=== PATIENT | male | born 1980 | race Two or more races ===

== ENCOUNTER 2024-05-25 05:47 | Emergency (ER) | payer MEDICAID, OTHER ==
[~2024-05-25] VITALS: Ht 175.3 cm; Wt 73.6 kg
[2024-05-25 06:05] VITALS: BP 114/80; PULSE 80; RESP 16; O2SAT 98
--- NOTE | 2024-05-25 07:04 | ED.PDOC ---
General HPI Comments A 44 YEAR OLD MALE PRESENTS TO THE ED WITH COMPLAINT OF LEFT TESTICLE PAIN. PATIENT STATES HE HAS BEEN EXPERIENCING LEFT TESTICLE PAIN WITH SWELLING FOR THE PAST 5 DAYS. PATIENT DENIES DYSURIA, HEMATURIA, PENILE DISCHARGE, FEVER, CHILLS, SHORTNESS OF BREATH, CHEST PAIN, ABDOMINAL PAIN, NAUSEA, VOMITING, HEADACHE, OR OTHER COMPLAINTS. NO OTHER SYMPTOMS OR MODIFYING FACTORS AT THIS TIME. PATIENT IS ALERT, ORIENTED X 4, AND HAS STEADY GAIT. Chief Complaint: Testicle Pain Time Seen by MD: 06:23 Reviewed notes: Nurses Notes, Medications, Allergies Home Meds Active Scripts Naproxen (Naproxen) 500 Mg Tab, 500 MG PO BID, #30 TAB Prov:ELLA ALEMAN 05/25/24 Doxycycline (Monohydrate) (Doxycycline) 100 Mg Cap, 100 MG PO BID, #20 CAP Prov:ELLA ALEMAN 05/25/24 Information Source: Patient Mode of Arrival: Ambulatory Severity: Moderate Inability to void: None Timing: Days Duration: Since onset, Days Prehospital treatment: None Onset: Spontaneous Symptoms: Other (LEFT TESTICLE PAIN AND SWELLING) History of: None Location: None Location male: L Scrotum Penile discharge: None Modifying factors: None associated signs and symptoms: None Past Medical History PAST MEDICAL HISTORY: Denies Surgical History: Denies all surgeries Family History Family History: Reviewed,noncontributory to illness Social History Smoker: Non-Smoker Alcohol: Denies ETOH Use Drugs: Denies Drug Use Lives In: Home Constitutional: denies: chills, diaphoresis, fatigue, fever, malaise, sweats, weakness, others EENTM: denies: blurred vision, double vision, ear bleeding, ear discharge, ear drainage, ear pain, ear ringing, eye pain, eye redness, hearing loss, mouth pain, mouth swelling, nasal discharge, nose bleeding, nose congestion, nose pain, photophobia, tearing, throat pain, throat swelling, voice changes, others Respiratory: denies: cough, hemoptysis, orthopnea, SOB at rest, shortness of breath, SOB with excertion, stridor, wheezing, others Cardiovascular: denies: chest pain, dizzy spells, diaphoresis, Dyspnea on exertion, edema, irregular heart beat, left arm pain, lightheadedness, palpitations, PND, syncope, others Gastrointestinal: denies: abdomen distended, abdominal pain, blood streaked bowels, constipated, diarrhea, dysphagia, difficulty swallowing, hematemesis, melena, nausea, poor appetite, poor fluid intake, rectal bleeding, rectal pain, vomiting, others Genitourinary: reports: testicle pain, testicle swelling; denies: burning, dysuria, flank pain, frequency, hematuria, incontinence, penile discharge, penile sore, pain, urgency, others Neurological: denies: dizziness, fainting, headache, left sided numbness, left sided weakness, numbness, paresthesia, pre-existing deficit, right sided numbness, right sided weakness, seizure, speech problems, tingling, tremors, weakness, others Musculoskeletal: denies: back pain, gout, joint pain, joint swelling, muscle pain, muscle stiffness, neck pain, others Integumetry: denies: bruises, change in color, change in hair/nails, dryness, laceration, lesions, lumps, rash, wounds, others Allergic/Immunocompromised: denies: Difficulty Healing, Frequent Infections, Hives, Itching, others Hematologic/Lymphatic: denies: anemia, blood clots, easy bleeding, easy bruising, swollen glands, others Endocrine: denies: excessive hunger, excessive sweating, excessive thirst, excessive urination, flushing, intolerance to cold, intolerance to heat, unexplained weight gain, unexplained weight loss, others Psychiatric: denies: anxiety, bipolar disorder, depression, hopeless, panic disorder, schizophrenia, sleepless, suicidal, others All Other Systems: Reviewed and Negative Physical Exam General Appearance: No Apparent Distress, Normal HEENT: Normal ENT Inspection, PERRL/EOMI, Pharynx Normal, TMs Normal Neck: Full Range of Motion, Non-Tender, Normal, Normal Inspection Respiratory: Chest Non-Tender, Lungs Clear, No Accessory Muscle Use, No Respiratory Distress, Normal Breath Sounds Cardiovascular: No Edema, No JVD, No Murmur, No Gallop, Normal Peripheral Pulses, Regular Rate/Rhythm Breast Exam: Deferred Gastrointestinal: No Organomegaly, Non Tender, No Pulsatile Mass, Normal Bowel Sounds, Soft Genitalia: Scrotum (TENDERNESS ON LEFT SCROTUM, NO REDNESS AND SWELLING. ), Testicle (TENDERNESS ON LEFT TESTICLE, NO TESTICLE TORSION, BILATERAL TESTICLE DESCENDING. 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 Was a procedure done?: No Differential Diagnosis Kidney stone (Female): N/A Kidney stone (Male): N/A Penile/Scrotal: Epidiymitis, STD, UTI, Hydrocele, Urolithiasis Urinary Problem (Male): N/A Urinary Problem (Female): N/A X-Ray, Labs, Meds, VS Vital Signs Date Time Temp Pulse Resp B/P (MAP) Pulse Ox O2 Delivery O2 Flow Rate FiO2 05/25/24 06:05 97.6 80 16 114/80 (91) 98 Lab Test 05/25/24 06:04 Range/Units Urine Color Light-yellow Yellow Urine Clarity Clear Clear Urine pH 5.5 5.0-9.0 Urine Specific [place] 1.014 1.001-1.035 Urine Protein Negative Negative Urine Ketones Negative Negative Urine Blood 1+ H Negative /uL Urine Nitrite Negative Negative Urine Bilirubin Negative Negative Urine Urobilinogen Normal Negative mg/dL Urine Leukocyte Esterase 3+ Negative /uL Urine RBC 9 0 - 3 /hpf Urine WBC 79 0 - 3 /hpf Urine Squamous Epithelial Cells Few <5 /hpf Urine Bacteria Few H None Seen /hpf Urine Mucus Few None Seen Urine Glucose Normal Normal mg/dL US TESTICULAR ULTRASOUND HISTORY: LEFT SIDE TESTICLE P;AIN COMPARISON: None FINDINGS: Transverse and longitudinal grayscale and Doppler sonographic images were obtained of the scrotum/testicles. Right testis: Size: 4.2 x 3.0 x 2. cm Doppler flow: normal Echogenicity: normal Mass:no Hydrocele: Present Epididymis: Measures 1.6 cm in length. 0.4 cm cyst. Varicocele: None. Other:none Left testis: Size: 3.8 x 2.7 x 3.0 cm Doppler flow: normal Echogenicity: normal Mass:no Hydrocele: Present Epididymis: Measures 1.3 cm in length. Cyst measuring 0.3 cm. Varicocele: None. Other:none IMPRESSION: 1. No evidence of epididymitis orchitis or testicular torsion. 2. Bilateral hydroceles. ATED BY: ELAINE LOPEZ MD DICTATED DATE/TIME: 05/25/24746 SIGNED BY: ELAINE LOPEZ MD SIGNED DATE/TIME: 05/25/24746 CC: X-Ray, Labs, Meds, VS Comment EXTERNAL MEDICAL RECORDS REVIEWED: [NONE] INDEPENDENT HISTORIANS: [NONE] SOCIAL DETERMINANTS OF HEALTH: [NONE] LABS ORDERED: UA REVIEWED AND INTERPRETED RESULTS: LEUKO 3+, BLOOD 1+ IMAGING ORDERED: US GEN/SCROTUM: [INTERPRETED BY U.S. TECH. BILATERAL EPIDIDYMAL CYST VISUALIZED. LEFT HYDROCELE VISUALIZED. LEFT VARICOCELE VISUALIZED. NO TESTICULAR TORSION VISUALIZED. PENDING RADIOLOGY REVIEW.] TREATMENTS ORDERED: NONE PROCEDURES PERFORMED: NONE CRITICAL CARE TIME: NONE I HAVE DISCUSSED THE PATIENT WITH THE ATTENDING PHYSICIAN DR. CLARK AND HE AGREES WITH THE PATIENT'S PLAN OF CARE AND DISPOSITION. BASED ON HISTORY OF PRESENT ILLNESS, AND PHYSICAL EXAM, PATIENT WILL BE DISCHARGED HOME. DISCUSSED PLAN FOR DISCHARGE HOME WITH RX [[facility]]. MEDICATION WARNINGS GIVEN. SHARED DECISION MAKING: PATIENT INSTRUCTED TO FOLLOW UP WITH PRIMARY CARE PROVIDER IN 1-2 DAYS FOR RE-EVALUATION OF SYMPTOMS. PATIENT VERBALIZES UNDERSTANDING TO RETURN TO ED FOR NEW OR WORSENING SYMPTOMS OR IF FOLLOW UP WITH PCP CANNOT BE OBTAINED. PATIENT FEELS COMFORTABLE GOING HOME AT THIS TIME. ALL QUESTIONS ADDRESSED AT TIME OF DISCHARGE. Images Reviewed?: Images reviewed and evaluated by me Time of 1ST Reevaluation: 07:41 Reevaluation 1ST: Improved Patient Education/Counseling: Diagnosis, Treatment, Need For Follow Up Family Education/Counseling: Diagnosis, Treatment, Need For Follow Up Medical Screening: No EMC Exist At This Time Departure 1 Departure Time of Disposition: 07:41 Impression: Primary Impression: Epididymal cyst Additional Impressions: Left hydrocele Acute UTI (urinary tract infection) Disposition: 01 HOME / SELF CARE / HOMELESS Condition: Stable Additional Instructions: FOLLOW-UP WITH PCP IN 1 TO 2 DAYS. TAKE MEDICATIONS PRESCRIBED. RETURN TO ED FOR ANY NEW OR WORSENING SYMPTOMS. e-Prescriptions Naproxen (Naproxen) 500 Mg Tab 500 MG PO BID, #30 TAB Prov: ELLA ALEMAN 05/25/24 Doxycycline (Monohydrate) (Doxycycline) 100 Mg Cap 100 MG PO BID, #20 CAP Prov: ELLA ALEMAN 05/25/24 Discharged With: Self Critical Care Note Critical Care Time?: No Stability Stability form required: No I personally scribed for ELLA ALEMAN ([email or web address]) on 05/25/24 at 07:04. Electronically submitted by Ranjan Amato ([email or web address]). I personally scribed for ELLA ALEMAN ([email or web address]) on 05/25/24 at 07:38. Electronically submitted by Ranjan Amato ([email or web address]). I personally scribed for LELE CLARK MD ([email or web address]) on 05/25/24 at 07:51. Electronically submitted by Ranjan Amato ([email or web address]). ELLA ALEMAN May 25, 2024 07:04 LELE CLARK MD May 25, 2024 07:51
[2024-05-25 07:25] LABS: Urine Bacteria FEW /hpf (None Seen); Urine Blood 1+ /uL (Negative); Urine Clarity Clear (Clear); Urine Color Light-Yellow (Yellow); Urine Mucus FEW (None Seen); Urine Protein, UAD Negative (Negative); Urine Specific Gravity 1.014 (1.001-1.035); Urine Urobilinogen Normal (Negative); Urine WBC 79 /hpf (0 - 3); Urine pH 5.5 (5.0-9.0)
[2024-05-25] MEDS ORDERED: NAPR-746 PO (07:43)
[2024-05-25] MEDS ORDERED: DOXY1CAP58 PO (07:43)
--- NOTE | 2024-05-25 07:50 | DVH ---
US TESTICULAR ULTRASOUND HISTORY: LEFT SIDE TESTICLE P;AIN COMPARISON: None FINDINGS: Transverse and longitudinal grayscale and Doppler sonographic images were obtained of the s crotum/testicles. Right testis: Size: 4.2 x 3.0 x 2. cm Doppler flow: normal Echogenicity: normal Mass:no Hydrocele: Present Epididymis: Measures 1.6 cm in length. 0.4 cm cyst. Varicocele: None. Other:none Left testis: Size: 3.8 x 2.7 x 3.0 cm Doppler flow: normal Echogenicity: normal Mass:no Hydrocele: Present Epididymis: Measures 1.3 cm in length. Cyst measuring 0.3 cm. Varicocele: None. Other:none IMPRESSION: 1. No evidence of epididymitis orchitis or testicular torsion. 2. Bilateral hydroceles.
== END 2024-05-25 07:47 | disposition home or self-care (01) ==
LOC: ER 05:47
DX: N50.3 Cyst of epididymis (principal); N43.3 Hydrocele, unspecified; N39.0 Urinary tract infection, site not specified
CPT/HCPCS: 76870; 81001